=== PATIENT | female | born 1990 | race Caucasian/White ===

== ENCOUNTER 2017-02-16 17:24 | Emergency (ER) | payer OTHER ==
--- NOTE | ~2017-02-16 | CR63 ---
[facility]. [facility] A Service of [facility] RADIOLOGY TEXT RESULTS PATIENT: LEONILA VELAZQUEZ LOCATION: SED : [birth year] UNIT #: [id number] AGE: [address]: AVA GILBERT SEX: F ORDER DR: [id number] [place] [id number] E MR#: [id number] Acc #: [id number] NAME: LEONILA VELAZQUEZ : 1990 SEX: F STUDY DATE/TIME: 02/16/2017 19:22 UNIT: SED ROOM: STUDY DESCRIPTION: CR Chest 2 View Attending Physician: Ava Gilbert Ordering Physician: Physician Non-Staff Primary Care Physician: Braulio Ramirez M.D. MEDICAL IMAGING REPORT This report is preliminary unless electronic signature is present. EXAM 2 views of the chest COMPARISON None INDICATIONS 27-year-old female with cough for 3 days. Increasing diagnosis of influenza B. FINDINGS Cardiomediastinal silhouette is normal. No evidence of pneumothorax, pleural effusion or acute airspace disease. IMPRESSION No acute radiographic abnormality. Dictated by... Braulio Maxwell M.D. THIS IS AN ELECTRONICALLY VERIFIED REPORT Braulio Maxwell M.D. at 02/19/2017 4:25 PM LAUREN/joe TD: 02/17/2017 08:04 JOB #: [id number] MEDICAL IMAGING REPORT Page 1 of 1
[~2017-02-16 17:24] MED LIST: NO MEDICATIONS; PRILOSEC20 MG PO
[2017-02-16 18:12] LABS: ALKALINE PHOSPHATASE 47 U/L (32-92); ALT (SGPT) 14 U/L (10-40); AST (SGOT) 17 U/L (10-42); BILIRUBIN,TOTAL 0.2 mg/dL (0.2-2.0); BLOOD UREA NITROGEN 8 mg/dL (9-23); BUN/CREATININE RATIO 13.33; CALCIUM SERUM 8.4 mg/dL (8.4-10.2); CARBON DIOXIDE 24 mmol/L (22-31); CHLORIDE 102 mmol/L (100-111); CREATININE SERUM 0.6 mg/dL (0.6-1.4); GLOM FILT RATE Estimated 126.7 mL/min (>60); GLUCOSE FASTING 92 mg/dL (70-110); LIPASE 30 U/L (22-51); POTASSIUM 3.3 mmol/L (3.5-5.1); PROTEIN TOTAL SERUM 7.9 g/dL (6.0-8.3); SODIUM 137 mmol/L (135-145)
[2017-02-16 18:15] LABS: BILIRUBIN, DIRECT <0.1 mg/dL (0.0-0.2); BILIRUBIN,INDIRECT 0.1 mg/dL (0.0-0.9)
[2017-02-16 18:18] LABS: INFLUENZA A NEG (NEG); INFLUENZA B POS (NEG)
[2017-02-16 18:20] LABS: BASOPHIL% 0.2 % (0-2.5); HEMATOCRIT 38.7 % (35.0-45.0); HEMOGLOBIN 12.7 gm/dL (12.0-16.0); LYMPHOCYTE# 0.4 X10e3 (1.0-3.5); LYMPHOCYTE% 13.4 % (17.0-45.0); MEAN CELL VOLUME 86.5 FL (83-96); MEAN CORPUSCULAR HEMOGLOBIN 28.5 PG (28-34); MEAN CORPUSCULAR HGB CONC 32.9 g/dL (30-36); MONOCYTE# 0.3 X10e3 (0-1.0); MONOCYTE% 9.1 % (3.0-12.0); NEUTROPHIL# 2.5 X10e3 (1.5-7.1); NEUTROPHIL% 77.3 % (40-75); PLATELET COUNT 93 X10e3 (140-420); RED BLOOD COUNT 4.48 X10e (3.90-5.30); RED CELL DISTRIBUTION WIDTH 16.1 % (11.0-15.5); WHITE BLOOD COUNT 3.3 X10e3 (4.0-10.5)
[2017-02-16 18:23] LABS: DIFF IND NO
[2017-02-16 18:37] LABS: URINE SOURCE CLEAN CATCH
[2017-02-16 18:39] LABS: URINE APPEARANCE CLEAR; URINE BILIRUBIN POS (NEG); URINE BLOOD NEG (NEG); URINE COLOR YELLOW; URINE GLUCOSE NEG (NORM); URINE LEUKOCYTE ESTERASE NEG (NEG); URINE NITRATE NEG (NEG); URINE PH 5.5 (5-8); URINE PROTEIN 1+ (NEG); URINE UROBILINOGEN 0.2 MG/DL (NORM)
[2017-02-16 18:41] LABS: MICRO INDICATED? NO; URINE KETONE 2+ (NEG)
== END 2017-02-16 20:38 | disposition home or self-care (01) ==
LOC: SED 17:24
PROVIDERS: Physician Assistant
DX: E86.0 Dehydration (principal); J10.1 Influenza due to other identified influenza virus with other respiratory manifestations; D69.6 Thrombocytopenia, unspecified; F17.210 Nicotine dependence, cigarettes, uncomplicated
CPT/HCPCS: 36415; 71020; 80048; 80076; 81003; 83690; 84703; 85025; 87651; 87804; 96361; 96374; 96375; 99284; J1885; J2405

== ENCOUNTER 2017-03-30 04:48 | Emergency (ER) | payer OTHER ==
--- NOTE | ~2017-03-30 | CT2 ---
[facility] A Service of [facility] RADIOLOGY TEXT RESULTS PATIENT: LEONILA VELAZQUEZ LOCATION: SED : [birth year] UNIT #: [id number] AGE: [address]: Frank Roman MD SEX: F ORDER DR: [id number] [place] [id number] E MR#: [id number] Acc #: [id number] NAME: LEONILA VELAZQUEZ : 1990 SEX: F STUDY DATE/TIME: 03/30/2017 5:45 UNIT: SED ROOM: STUDY DESCRIPTION: CT Abd and Pelv W Cont Attending Physician: Frank Roman M.D. Ordering Physician: Frank Roman M.D. Primary Care Physician: Braulio Ramirez M.D. MEDICAL IMAGING REPORT This report is preliminary unless electronic signature is present. EXAM Abdomen and pelvis CT with contrast HISTORY Moderate abdominal pain, nausea, vomiting for 1 day, colonoscopy, history. TECHNIQUE This CT examination was performed with one or more of the following radiation dose reduction techniques: automatic exposure control, adjustment of mA and/or kV according to patient size, and iterative reconstruction. COMMENT CT of the abdomen and pelvis performed during the intravenous administration of nonionic contrast media. 100 mL of Isovue 370. Imaging acquired in the axial plane followed by sagittal and coronal reconstructed images. Lung bases are clear. CT ABDOMEN: There is mild intrahepatic biliary ductal dilatation. The gallbladder is contracted and I am concerned for some small amount of pericholecystic fluid. Please correlate for clinical evidence of cholecystitis and I would suggest correlation with a followup ultrasound. The adrenal glands, spleen, pancreas, and kidneys are unremarkable. CT PELVIS: Urinary bladder is unremarkable. The appendix is only seen in portions but where seen unremarkable on this examination without oral contrast media. There is nothing to suggest bowel obstruction. No free air. No drainable fluid collection. No retroperitoneal lymphadenopathy. IMPRESSION [facility] A Service of [facility] RADIOLOGY TEXT RESULTS PATIENT: LEONILA VELAZQUEZ LOCATION: SED : 92 UNIT #: [id number] AGE: [address]: Frank Roman MD SEX: F ORDER DR: 1. I believe the gallbladder is contracted. There is concern for mild biliary ductal dilatation/periportal tracking. Recommend correlation for clinical evidence of acute cholecystitis and correlation with a followup right upper quadrant ultrasound. There may be a small amount of pericholecystic fluid. 2. No bowel obstruction. Visualized appendix is unremarkable. No free intraperitoneal air. No drainable fluid collection. Dictated by... Erin Mirza M.D. THIS IS AN ELECTRONICALLY VERIFIED REPORT Erin Mirza M.D. at 03/30/2017 3:25 PM MITCHELL/dedra TD: 03/30/2017 10:14 JOB #: [id number] MEDICAL IMAGING REPORT Page 1 of 1
--- NOTE | ~2017-03-30 | US67 ---
[facility] A Service of [facility] RADIOLOGY TEXT RESULTS PATIENT: LEONILA VELAZQUEZ LOCATION: SED : [birth year] UNIT #: [id number] AGE: [address]: Frank Roman MD SEX: F ORDER DR: [id number] [place] [id number] E MR#: [id number] Acc #: [id number] NAME: LEONILA VELAZQUEZ : 1990 SEX: F STUDY DATE/TIME: 03/30/2017 8:01 UNIT: SED ROOM: STUDY DESCRIPTION: Gallbladder Attending Physician: Frank Roman M.D. Ordering Physician: Frank Roman M.D. Primary Care Physician: Braulio Ramirez M.D. MEDICAL IMAGING REPORT This report is preliminary unless electronic signature is present. EXAM Right upper quadrant abdominal ultrasound INDICATIONS Nausea, vomiting diarrhea. Generalized abdominal pain for the past day. PROCEDURE Ariza-scale and Doppler imaging right upper quadrant of the abdomen COMPARISON CT from 03/30/2017 FINDINGS Pancreas is mostly obscured but visualized portions are unremarkable. Liver has homogeneous echotexture. The liver measures 19.2 cm in length. The right kidney measures 11 cm and is unremarkable. There are stones in the gallbladder. No definite gallbladder wall thickening. Common duct measures 2-3 mm. IMPRESSION 1. Multiple stones in the gallbladder but no definite gallbladder wall thickening seen by ultrasound. 2. Findings are equivocal for acute cholecystitis. If there is ongoing clinical suspicion HIDA scan may be helpful. 3. Borderline hepatomegaly. Dictated by... Ernie Corrales M.D. THIS IS AN ELECTRONICALLY VERIFIED REPORT Ernie Corrales M.D. at 04/02/2017 7:04 AM EED/cmm [facility] A Service [facility] RADIOLOGY TEXT RESULTS PATIENT: LEONILA VELAZQUEZ LOCATION: SED : [birth year] UNIT #: [id number] AGE: [address]: Frank Roman MD SEX: F ORDER DR: TD: 03/30/2017 10:45 JOB #: [id number] MEDICAL IMAGING REPORT Page 1 of 1
[2017-03-30 04:54] LABS: BASOPHIL# 0.1 X10e3 (0-0.3); EOSINOPHIL# 0.1 X10e3 (0-0.7); EOSINOPHIL% 1.4 % (0.0-7.0); HEMOGLOBIN 12.6 gm/dL (12.0-16.0); LYMPHOCYTE% 12.8 % (17.0-45.0); MEAN CELL VOLUME 87.6 FL (83-96); MEAN CORPUSCULAR HEMOGLOBIN 28.2 PG (28-34); MEAN CORPUSCULAR HGB CONC 32.2 g/dL (30-36); MONOCYTE# 0.1 X10e3 (0-1.0); MONOCYTE% 1.4 % (3.0-12.0); NEUTROPHIL# 6.4 X10e3 (1.5-7.1); NEUTROPHIL% 83.4 % (40-75); PLATELET COUNT 169 X10e3 (140-420); RED BLOOD COUNT 4.45 X10e (3.90-5.30); RED CELL DISTRIBUTION WIDTH 16.5 % (11.0-15.5); WHITE BLOOD COUNT 7.7 X10e3 (4.0-10.5)
[2017-03-30 04:55] LABS: DIFF IND NO
[2017-03-30 05:02] LABS: PROTHROMBIN TIME (PATIENT) 11.5 SECONDS (9.5-12.4)
[2017-03-30 05:09] LABS: PARTIAL THROMBOPLASTIN TIME 28.2 SECONDS (25.6-38.1)
[2017-03-30 05:12] LABS: BILIRUBIN, DIRECT 0.1 mg/dL (0.0-0.2); BILIRUBIN,INDIRECT 0.3 mg/dL (0.0-0.9); BILIRUBIN,TOTAL 0.4 mg/dL (0.2-2.0); BUN/CREATININE RATIO 16.66; CALCIUM SERUM 8.9 mg/dL (8.4-10.2); CREATININE SERUM 0.6 mg/dL (0.6-1.4); GLOM FILT RATE Estimated 126.7 mL/min (>60); POTASSIUM 3.8 mmol/L (3.5-5.1); PROTEIN TOTAL SERUM 7.6 g/dL (6.0-8.3)
[2017-03-30 07:18] LABS: URINE SOURCE CLEAN CATCH
[2017-03-30 07:20] LABS: URINE APPEARANCE CLEAR; URINE BILIRUBIN NEG (NEG); URINE BLOOD NEG (NEG); URINE COLOR YELLOW; URINE GLUCOSE NEG (NORM); URINE KETONE NEG (NEG); URINE LEUKOCYTE ESTERASE NEG (NEG); URINE NITRATE NEG (NEG); URINE PH 5.5 (5-8); URINE PROTEIN NEG (NEG); URINE SPECIFIC GRAVITY <=1.005 (1.003-1.035); URINE UROBILINOGEN 0.2 MG/DL (NORM)
[2017-03-30 07:21] LABS: MICRO INDICATED? NO
== END 2017-03-30 09:12 | disposition home or self-care (01) ==
LOC: SED 04:48
PROVIDERS: Emergency Medicine
DX: K29.00 Acute gastritis without bleeding (principal); K80.50 Calculus of bile duct without cholangitis or cholecystitis without obstruction; F41.9 Anxiety disorder, unspecified; F17.200 Nicotine dependence, unspecified, uncomplicated
CPT/HCPCS: 74177; 76705; 80048; 80076; 81003; 83690; 84703; 85025; 85610; 85730; 96361; 96374; 96375; 99284; J1170; J2270; J2405; J2550; Q9967

== ENCOUNTER 2017-04-20 21:02 | Emergency (ER) | payer OTHER ==
[2017-04-20 21:53] LABS: URINE SOURCE CLEAN CATCH
[2017-04-20 21:56] LABS: URINE APPEARANCE CLEAR; URINE BLOOD TRACE-INTACT (NEG); URINE COLOR YELLOW; URINE GLUCOSE NEG (NORM); URINE KETONE 1+ (NEG); URINE LEUKOCYTE ESTERASE TRACE (NEG); URINE NITRATE NEG (NEG); URINE PROTEIN TRACE (NEG); URINE SPECIFIC GRAVITY 1.015 (1.003-1.035); URINE UROBILINOGEN 0.2 MG/DL (NORM)
[2017-04-20 21:58] LABS: MICRO INDICATED? YES; URINE BILIRUBIN NEG (NEG)
[2017-04-20 22:00] LABS: CULTURE INDICATED? YES; URINE BACTERIA 1+ (NEG); URINE MUCUS PRESENT; URINE SQUAMOUS EPITHELIAL CELL FEW /[HPF]
[2017-04-20 22:09] LABS: BASOPHIL% 0.2 % (0-2.5); EOSINOPHIL% 0.5 % (0.0-7.0); HEMATOCRIT 37.2 % (35.0-45.0); HEMOGLOBIN 12.5 gm/dL (12.0-16.0); LYMPHOCYTE# 1.1 X10e3 (1.0-3.5); LYMPHOCYTE% 14.8 % (17.0-45.0); MEAN CELL VOLUME 86.7 FL (83-96); MEAN CORPUSCULAR HEMOGLOBIN 29.1 PG (28-34); MEAN CORPUSCULAR HGB CONC 33.5 g/dL (30-36); MEAN PLATELET VOLUME 10.3 FL (6.5-11.5); MONOCYTE# 0.5 X10e3 (0-1.0); MONOCYTE% 7.3 % (3.0-12.0); NEUTROPHIL# 5.7 X10e3 (1.5-7.1); NEUTROPHIL% 77.2 % (40-75); PLATELET COUNT 120 X10e3 (140-420); RED BLOOD COUNT 4.29 X10e (3.90-5.30); RED CELL DISTRIBUTION WIDTH 15.8 % (11.0-15.5); WHITE BLOOD COUNT 7.4 X10e3 (4.0-10.5)
[2017-04-20 22:10] LABS: DIFF IND NO
[2017-04-20 22:24] LABS: ALBUMIN SERUM 3.7 g/dL (3.5-5.0); ALKALINE PHOSPHATASE 52 U/L (32-92); ALT (SGPT) 9 U/L (10-40); AMYLASE 13 U/L (0-46); AST (SGOT) 12 U/L (10-42); BILIRUBIN,TOTAL 0.1 mg/dL (0.2-2.0); BLOOD UREA NITROGEN 5 mg/dL (9-23); BUN/CREATININE RATIO 8.33; CALCIUM SERUM 8.4 mg/dL (8.4-10.2); CARBON DIOXIDE 21 mmol/L (22-31); CHLORIDE 107 mmol/L (100-111); CREATININE SERUM 0.6 mg/dL (0.6-1.4); GLOM FILT RATE Estimated 126.7 mL/min (>60); GLUCOSE FASTING 92 mg/dL (70-110); LIPASE 22 U/L (22-51); PROTEIN TOTAL SERUM 7.4 g/dL (6.0-8.3); SODIUM 135 mmol/L (135-145)
[2017-04-20 22:26] LABS: BILIRUBIN, DIRECT <0.1 mg/dL (0.0-0.2)
== END 2017-04-20 23:20 | disposition home or self-care (01) ==
LOC: SED 21:02
PROVIDERS: Physician Assistant
DX: N30.00 Acute cystitis without hematuria (principal); E87.6 Hypokalemia; R19.7 Diarrhea, unspecified; F17.210 Nicotine dependence, cigarettes, uncomplicated
CPT/HCPCS: 36415; 80048; 80076; 81003; 82150; 83690; 84703; 85025; 87086; 96361; 96374; 96375; 99284; J2270; J2405